=== PATIENT | male | born 1960 | race Caucasian/White ===

== ENCOUNTER → 2022-03-27 11:13 | Outpatient (CLI) | payer OTHER, SELFPAY ==
[2022-03-27 19:27] LABS: Add Manual Diff / Slide Review NO; Basophils Absolute Auto 0 /uL (0-100); Basophils Percent Auto 0.5 % (0-2); Eosinophils Absolute Auto 200 /uL (0-450); Eosinophils Percent Auto 2.2 % (2-4); Hematocrit 45.4 % (41-53); Hemoglobin 14.9 g/dL (13.5-17.5); Lymphocytes Absolute Auto 2000 /uL (1100-4500); Lymphocytes Percent Auto 24.5 % (25-40); Mean Corpuscular HGB Conc 32.9 % (30-36); Mean Corpuscular Hemoglobin 27.2 PG (26-34); Mean Corpuscular Volume 82.7 fL (80-100); Monocytes Absolute Auto 400 /uL (0-900); Monocytes Percent Auto 5.1 % (3-14); Neutrophils Absolute Auto 5400 /uL (1500-7000); Neutrophils Percent Auto 67.7 % (50-75); Platelet Count 268 X10^3/uL (150-400); Red Blood Cell Count 5.49 X10^6/uL (4.5-5.9); Red Cell Distribution Width 13.6 % (11.6-14.8)
[2022-03-27 19:59] LABS: Alanine Aminotransferase 74 IU/L (<50); Albumin 4.6 g/dL (3.5-5.0); Albumin Globulin Ratio 1.4 (1.0-2.8); Alkaline Phosphatase 72 U/L (38-126); Aspartate Aminotransferase 45 IU/L (17-59); BUN Creatinine Ratio 20.8 (6-22); Bilirubin Total 0.6 mg/dL (0.2-1.3); Blood Urea Nitrogen 16 mg/dL (9-20); Calcium 9.3 mg/dL (8.4-10.2); Carbon Dioxide 30 mmol/L (22-32); Chloride 101 mmol/L (98-107); Cholesterol 186 mg/dL (140-199); Estimated Glomerular Filt Rate > 60 mL/min (>60); Globulin 3.4 g/dL (1.7-4.1); Glucose 97 mg/dL (80-110); HDL Cholesterol 53 mg/dL (40-60); HEMOLYSIS < 15 (0-50); LDL Cholesterol Calculated 123 mg/dL (<100); Potassium 4.8 mmol/L (3.4-5.1); Sodium 140 mmol/L (137-145); Triglycerides 51 mg/dL (35-150)
[2022-03-27 20:04] LABS: TSH w/ Reflex to FT4 0.86 uIU/mL (0.47-4.68)
[2022-03-27 20:29] LABS: Prostate Specific Antigen Scrn 0.481 ng/mL (0.1-4.0)
== END ==
PROVIDERS: PCP Physician Assistant; Visit Provider Physician Assistant
DX: F41.0 Panic disorder [episodic paroxysmal anxiety] (principal); I10 Essential (primary) hypertension; Z13.6 Encounter for screening for cardiovascular disorders; Z63.0 Problems in relationship with spouse or partner; Z12.5 Encounter for screening for malignant neoplasm of prostate
CPT/HCPCS: 80053; 80061; 84443; 85025; G0103

== ENCOUNTER → 2023-05-03 10:14 | Outpatient (CLI) | payer OTHER, SELFPAY ==
[2023-05-03 20:08] LABS: Add Manual Diff / Slide Review NO; Basophils Absolute Auto 0 /uL (0-100); Basophils Percent Auto 0.6 % (0-2); Eosinophils Absolute Auto 200 /uL (0-450); Eosinophils Percent Auto 2.4 % (2-4); Hematocrit 45.4 % (41-53); Hemoglobin 15.1 g/dL (13.5-17.5); Lymphocytes Absolute Auto 1800 /uL (1100-4500); Lymphocytes Percent Auto 22.3 % (25-40); Mean Corpuscular HGB Conc 33.3 % (30-36); Mean Corpuscular Hemoglobin 26.7 PG (26-34); Mean Corpuscular Volume 80.4 fL (80-100); Monocytes Absolute Auto 600 /uL (0-900); Monocytes Percent Auto 7.4 % (3-14); Neutrophils Absolute Auto 5300 /uL (1500-7000); Neutrophils Percent Auto 67.3 % (50-75); Platelet Count 279 X10^3/uL (150-400); Red Blood Cell Count 5.65 X10^6/uL (4.5-5.9); Red Cell Distribution Width 14.3 % (11.6-14.8); White Blood Cell Count 7.9 X10^3/uL (4.5-11.0)
[2023-05-03 20:23] LABS: Alanine Aminotransferase 54 IU/L (<50); Albumin 4.4 g/dL (3.5-5.0); Albumin Globulin Ratio 1.2 (1.0-2.8); Alkaline Phosphatase 77 U/L (38-126); BUN Creatinine Ratio 18.2 (6-22); Bilirubin Total 1.2 mg/dL (0.2-1.3); Blood Urea Nitrogen 14 mg/dL (9-20); Calcium 9.7 mg/dL (8.4-10.2); Carbon Dioxide 30 mmol/L (22-32); Chloride 96 mmol/L (98-107); Cholesterol 168 mg/dL (140-199); Estimated Glomerular Filt Rate > 60 mL/min (>60); Globulin 3.7 g/dL (1.7-4.1); Glucose 149 mg/dL (80-110); HDL Cholesterol 53 mg/dL (40-60); HEMOLYSIS < 15 (0-50); LDL Cholesterol Calculated 98 mg/dL (<100); Potassium 4.7 mmol/L (3.4-5.1); Sodium 136 mmol/L (137-145); Total Protein 8.1 g/dL (6.3-8.2); Triglycerides 84 mg/dL (35-150)
[2023-05-03 20:30] LABS: TSH w/ Reflex to FT4 0.82 uIU/mL (0.47-4.68)
[2023-05-04 15:33] LABS: Aspartate Aminotransferase 38 IU/L (17-59)
== END ==
PROVIDERS: PCP Physician Assistant Medical; Visit Provider Physician Assistant Medical
DX: Z13.0 Encounter for screening for diseases of the blood and blood-forming organs and certain disorders involving the immune mechanism (principal); Z13.6 Encounter for screening for cardiovascular disorders; F32.9 Major depressive disorder, single episode, unspecified; F41.0 Panic disorder [episodic paroxysmal anxiety]; I10 Essential (primary) hypertension; R74.01 Elevation of levels of liver transaminase levels; Z63.0 Problems in relationship with spouse or partner; Z72.0 Tobacco use
CPT/HCPCS: 80053; 80061; 84443; 85025

== ENCOUNTER → 2023-05-10 11:54 | Outpatient (CLI) | payer OTHER, SELFPAY ==
[2023-05-10 19:39] LABS: Uric Acid 8.8 mg/dL (3.5-8.5)
== END ==
PROVIDERS: PCP Physician Assistant Medical; Visit Provider Physician Assistant Medical
DX: R73.9 Hyperglycemia, unspecified (principal); I10 Essential (primary) hypertension; M10.9 Gout, unspecified
CPT/HCPCS: 84550

== ENCOUNTER → 2023-06-13 12:21 | Outpatient (CLI) | payer OTHER, SELFPAY ==
[2023-06-13 19:49] LABS: Add Manual Diff / Slide Review NO; Basophils Absolute Auto 0 /uL (0-100); Basophils Percent Auto 0.3 % (0-2); Eosinophils Absolute Auto 200 /uL (0-450); Eosinophils Percent Auto 1.9 % (2-4); Hematocrit 44.9 % (41-53); Hemoglobin 14.9 g/dL (13.5-17.5); Lymphocytes Absolute Auto 1100 /uL (1100-4500); Lymphocytes Percent Auto 12.9 % (25-40); Mean Corpuscular HGB Conc 33.2 % (30-36); Mean Corpuscular Hemoglobin 26.5 PG (26-34); Mean Corpuscular Volume 79.7 fL (80-100); Monocytes Absolute Auto 800 /uL (0-900); Monocytes Percent Auto 8.7 % (3-14); Neutrophils Absolute Auto 6600 /uL (1500-7000); Neutrophils Percent Auto 76.2 % (50-75); Platelet Count 234 X10^3/uL (150-400); Red Blood Cell Count 5.64 X10^6/uL (4.5-5.9); White Blood Cell Count 8.7 X10^3/uL (4.5-11.0)
== END ==
PROVIDERS: PCP Physician Assistant Medical; Visit Provider Physician Assistant Medical
DX: M25.421 Effusion, right elbow (principal)
CPT/HCPCS: 84550; 85025

== ENCOUNTER → 2023-06-14 11:00 | Outpatient (CLI) | payer OTHER, SELFPAY ==
[2023-06-14 20:24] LABS: Crystals Body Fluid - IN-HOUSE Monosodium Urate MSU
== END ==
PROVIDERS: PCP Physician Assistant Medical; Visit Provider Physician Assistant Medical
DX: M25.421 Effusion, right elbow (principal); M10.9 Gout, unspecified
CPT/HCPCS: 87070; 87075; 87205; 89060

== ENCOUNTER → 2023-10-15 12:02 | Outpatient (CLI) | payer OTHER, SELFPAY ==
[2023-10-15 19:39] LABS: Add Manual Diff / Slide Review NO; Basophils Absolute Auto 0 /uL (0-100); Basophils Percent Auto 0.3 % (0-2); Eosinophils Absolute Auto 100 /uL (0-450); Eosinophils Percent Auto 1.2 % (2-4); Hematocrit 41.5 % (41-53); Hemoglobin 13.8 g/dL (13.5-17.5); Lymphocytes Absolute Auto 1700 /uL (1100-4500); Lymphocytes Percent Auto 15.5 % (25-40); Mean Corpuscular HGB Conc 33.2 % (30-36); Mean Corpuscular Hemoglobin 27.4 PG (26-34); Mean Corpuscular Volume 82.7 fL (80-100); Monocytes Absolute Auto 1000 /uL (0-900); Monocytes Percent Auto 9.6 % (3-14); Neutrophils Absolute Auto 8000 /uL (1500-7000); Neutrophils Percent Auto 73.4 % (50-75); Platelet Count 298 X10^3/uL (150-400); Red Blood Cell Count 5.02 X10^6/uL (4.5-5.9); Red Cell Distribution Width 13.7 % (11.6-14.8)
[2023-10-15 19:47] LABS: Alanine Aminotransferase 30 IU/L (<50); Albumin 4.3 g/dL (3.5-5.0); Albumin Globulin Ratio 1.2 (1.0-2.8); Alkaline Phosphatase 81 U/L (38-126); Aspartate Aminotransferase 25 IU/L (17-59); BUN Creatinine Ratio 18.3 (6-22); Bilirubin Total 1.2 mg/dL (0.2-1.3); Blood Urea Nitrogen 11 mg/dL (9-20); Calcium 9.4 mg/dL (8.4-10.2); Carbon Dioxide 23 mmol/L (22-32); Chloride 107 mmol/L (98-107); Estimated Glomerular Filt Rate > 60 mL/min (>60); Globulin 3.5 g/dL (1.7-4.1); Glucose 102 mg/dL (80-110); HEMOLYSIS 19 (0-50); Potassium 4.3 mmol/L (3.4-5.1); Sodium 138 mmol/L (137-145); Total Protein 7.8 g/dL (6.3-8.2); Uric Acid 4.5 mg/dL (3.5-8.5)
[2023-10-15 20:04] LABS: Erythrocyte Sedimentation Rate 11 MM/HR (0-15)
[2023-10-18 17:36] LABS: ANA Screen, IFA Negative (.)
== END ==
PROVIDERS: PCP Physician Assistant Medical; Visit Provider Physician Assistant
DX: R73.9 Hyperglycemia, unspecified (principal); M10.9 Gout, unspecified; M25.50 Pain in unspecified joint; R74.01 Elevation of levels of liver transaminase levels
CPT/HCPCS: 80053; 84550; 85025; 85651; 86038

== ENCOUNTER 2024-07-28 13:35 | Emergency (ER) | payer OTHER, SELFPAY ==
[2024-07-28] VITALS (21 sets, daily range): BP systolic 158–201; BP diastolic 88–106; PULSE 62–71; RESP 13–29; TEMP 36.6; O2SAT 95–99; BMI 32.3
--- NOTE | 2024-07-28 13:44 | DI.RAD.S_ITS ---
PROCEDURE: XR CHEST 1V INDICATIONS: chest pain TECHNIQUE: One view of the chest was acquired. COMPARISON: None. FINDINGS: Surgical changes and devices: None. Lungs and pleura: Lungs are clear. No pleural effusions or pneumothorax. Mediastinum: Mediastinal contours appear normal. Heart size is normal. Bones and chest wall: No suspicious bony lesions. Overlying soft tissues appear unremarkable. IMPRESSION: No acute cardiopulmonary abnormality is seen. Dictated by: Kartik Gómez M.D. on 07/28/2024 at 14:20 Approved by: Kartik Gómez M.D. on 07/28/2024 at 14:21
--- NOTE | 2024-07-28 13:58 | EKG_ITS ---
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
[2024-07-28 14:04] LABS: Add Manual Diff / Slide Review NO; Basophils Absolute Auto 0 /uL (0-100); Basophils Percent Auto 0.5 % (0-2); Eosinophils Absolute Auto 300 /uL (0-450); Eosinophils Percent Auto 4.1 % (2-4); Hematocrit 43.4 % (41-53); Hemoglobin 14.4 g/dL (13.5-17.5); Lymphocytes Absolute Auto 1800 /uL (1100-4500); Lymphocytes Percent Auto 21.9 % (25-40); Mean Corpuscular HGB Conc 33.2 % (30-36); Mean Corpuscular Hemoglobin 26.7 PG (26-34); Mean Corpuscular Volume 80.6 fL (80-100); Monocytes Absolute Auto 400 /uL (0-900); Neutrophils Absolute Auto 5700 /uL (1500-7000); Neutrophils Percent Auto 68.5 % (50-75); Platelet Count 329 X10^3/uL (150-400); Red Blood Cell Count 5.39 X10^6/uL (4.5-5.9); Red Cell Distribution Width 13.1 % (11.6-14.8); White Blood Cell Count 8.3 X10^3/uL (4.5-11.0)
[2024-07-28 14:11] LABS: Prothrombin Time 11.5 SECONDS (9.4-12.5)
[2024-07-28 14:13] LABS: PTT Partial Thromboplastin Tim 36 SECONDS (25.1-36.5)
[2024-07-28 14:15] LABS: Alanine Aminotransferase 30 IU/L (<50); Albumin 4.5 g/dL (3.5-5.0); Albumin Globulin Ratio 1.3 (1.0-2.8); Alkaline Phosphatase 81 U/L (38-126); Aspartate Aminotransferase 30 IU/L (17-59); BUN Creatinine Ratio 16.4 (6-22); Bilirubin Total 0.5 mg/dL (0.2-1.3); Blood Urea Nitrogen 19 mg/dL (9-20); Calcium 9.2 mg/dL (8.4-10.2); Carbon Dioxide 27 mmol/L (22-32); Chloride 101 mmol/L (98-107); Creatine Kinase 64 U/L (55-170); Estimated Glomerular Filt Rate > 60 mL/min (>60); Globulin 3.6 g/dL (1.7-4.1); Glucose 155 mg/dL (80-110); HEMOLYSIS < 15 (0-50); Lipase 112 U/L (23-300); Magnesium 1.9 mg/dL (1.6-2.3); Potassium 4.1 mmol/L (3.4-5.1); Sodium 138 mmol/L (137-145); Total Protein 8.1 g/dL (6.3-8.2)
[2024-07-28 14:27] LABS: NT-proBNP (BNP-Adult 18+) 112 pg/mL (<125); Troponin I < 0.012 ng/mL (0.01-0.034)
--- NOTE | 2024-07-28 17:04 | ED.CHESTPAIN ---
HPI - Chest Pain General Chief Complaint: Chest Pain Stated Complaint: fall, chest px, sob x 2days Time Seen by Provider: 07/28/24 16:27 Source: patient, RN notes reviewed and old records reviewed Mode of arrival: Ambulatory Limitations: no limitations Limitations: no limitations Related Data Previous Rx's Medication Instructions Recorded lisinopril 30 mg tablet 30 mg PO DAILY #90 tabs 06/13/23 allopurinol 300 mg tablet See Rx Instructions PO DAILY #90 06/22/23 tabs hydrocodone 5 mg-acetaminophen 325 1 tab PO BEDTIME PRN pain at 10/15/23 mg tablet nighttime #10 tabs colchicine 0.6 mg capsule See Rx Instructions PO DAILY #90 12/17/23 caps amlodipine 5 mg tablet 5 mg PO DAILY #90 tabs 04/17/24 bupropion HCl 150 mg 24 hr tablet, 300 mg (2 x 150 mg) PO QAM #180 05/06/24 extended release tabs Allergies Allergy/AdvReac Type Severity Reaction Status Date / Time No Known Drug Allergies Allergy Verified 10/15/23 11:28 Review of Systems Review of Systems ROS Unobtainable: All systems reviewed & are unremarkable except as noted in HPI and below Patient History Surgical History Anesthesia History of knee surgery Family History Mother Cancer Social History Smoking Status: Never smoker Smoking Status: Never smoker Exam Initial Vital Signs Initial Vital Signs: Vital Signs Temperature 97.9 F 07/28/24 13:39 Pulse Rate 69 07/28/24 13:39 Respiratory Rate 18 07/28/24 13:39 Blood Pressure 201/94 H 07/28/24 13:39 Pulse Oximetry 99 07/28/24 13:39 Oxygen Delivery Method Room Air 07/28/24 13:39 Course Orders Ordered: ED Orders 07/28/24 13:44 XR chest 1V Stat EKG-12 Lead Stat 07/28/24 13:50 Complete Blood Count AUTO DIFF Stat Comprehensive Metabolic Panel Stat Lipase Stat Magnesium Stat NT-proBNP (BNP-Adult 18+) Stat PTT Partial Thromboplastin Sean Stat Prothrombin Time INR Stat Troponin & CK Cardiac Panel Stat Discontinued Medications Aspirin (Aspirin 81 Mg Chew Tab) 324 mg PO NOW ONE Stop: 07/28/24 13:45 Last Admin: 07/28/24 15:04 Dose: Not Given Documented By: ROBERTO Vital Signs Vital signs: Vital Signs - 8 hr 07/28/24 13:39 07/28/24 14:02 07/28/24 14:03 Temperature 97.9 F Pulse Rate 69 68 Respiratory Rate 18 29 H Blood Pressure 201/94 H 182/100 H Pulse Oximetry 99 98 Oxygen Delivery Method Room Air 07/28/24 14:03 07/28/24 14:30 07/28/24 14:31 Temperature Pulse Rate 71 69 70 Respiratory Rate 18 22 21 Blood Pressure Pulse Oximetry 97 98 98 Oxygen Delivery Method 07/28/24 14:31 07/28/24 15:00 07/28/24 15:01 Temperature Pulse Rate 65 Respiratory Rate 18 Blood Pressure 173/106 H 176/91 H Pulse Oximetry 96 Oxygen Delivery Method 07/28/24 15:01 07/28/24 15:30 07/28/24 15:30 Temperature Pulse Rate 66 63 Respiratory Rate 18 20 Blood Pressure 174/88 H Pulse Oximetry 95 96 Oxygen Delivery Method Room Air 07/28/24 16:00 07/28/24 16:01 07/28/24 16:01 Temperature Pulse Rate 65 65 Respiratory Rate 20 18 Blood Pressure 169/102 H Pulse Oximetry 97 97 Oxygen Delivery Method 07/28/24 16:29 07/28/24 16:29 07/28/24 16:30 Temperature Pulse Rate 66 62 Respiratory Rate 19 20 Blood Pressure 183/89 H Pulse Oximetry 97 96 Oxygen Delivery Method 07/28/24 16:31 07/28/24 16:31 07/28/24 17:00 Temperature Pulse Rate 62 65 Respiratory Rate 17 13 Blood Pressure 182/93 H Pulse Oximetry 97 97 Oxygen Delivery Method 07/28/24 17:01 07/28/24 17:01 Temperature Pulse Rate 65 Respiratory Rate 18 Blood Pressure 158/98 H Pulse Oximetry 97 Oxygen Delivery Method MDM - Chest Pain Lab Data 07/28/24 13:50 07/28/24 13:50 Labs: Lab Results 07/28/24 Range/Units 13:50 WBC 8.3 (4.5-11.0) X10^3/uL RBC 5.39 (4.5-5.9) X10^6/uL Hgb 14.4 (13.5-17.5) g/dL Hct 43.4 (41-53) % MCV 80.6 (80-100) fL MCH 26.7 (26-34) PG MCHC 33.2 (30-36) % RDW 13.1 (11.6-14.8) % Plt Count 329 (150-400) X10^3/uL Neut % (Auto) 68.5 (50-75) % Lymph % (Auto) 21.9 L (25-40) % [place] % (Auto) 5.0 (3-14) % Eos % (Auto) 4.1 H (2-4) % Baso % (Auto) 0.5 (0-2) % Neut # (Auto) 5700 (6046-6745) /uL Lymph # (Auto) 1800 (1470-0292) /uL [place] # (Auto) 400 (0-900) /uL Eos # (Auto) 300 (0-450) /uL Baso # (Auto) 0 (0-100) /uL PT 11.5 (9.4-12.5) SECONDS INR 1.0 (0.9-1.3) APTT 36 (25.1-36.5) SECONDS Sodium 138 (137-145) mmol/L Potassium 4.1 (3.4-5.1) mmol/L Chloride 101 (98-107) mmol/L Carbon Dioxide 27 (22-32) mmol/L BUN 19 (9-20) mg/dL Creatinine 1.16 (0.66-1.25) mg/dL Estimated GFR > 60 (>60) mL/min BUN/Creatinine Ratio 16.4 (6-22) Glucose 155 H (80-110) mg/dL Calcium 9.2 (8.4-10.2) mg/dL Magnesium 1.9 (1.6-2.3) mg/dL Total Bilirubin 0.5 (0.2-1.3) mg/dL AST 30 (17-59) IU/L ALT 30 (<50) IU/L Alkaline Phosphatase 81 (38-126) U/L Total Creatine Kinase 64 (55-170) U/L Troponin I < 0.012 (0.01-0.034) ng/mL NT-Pro-B Natriuret Pep 112 (<125) pg/mL Total Protein 8.1 (6.3-8.2) g/dL Albumin 4.5 (3.5-5.0) g/dL Globulin 3.6 (1.7-4.1) g/dL Albumin/Globulin Ratio 1.3 (1.0-2.8) Lipase 112 (23-300) U/L ECG Data Attestation: I personally reviewed and interpreted this ECG as follows: Interpretation: Sinus rhythm rate of 68 GA 204 QRS 88 QTC of 442, no acute ST elevation depression noted. MDM Narrative Medical decision making narrative: EKG shows sinus rhythm Labs show normal white count hemoglobin and platelets. Coags are negative electrolytes are appropriate creatinine is 1.16 BUN 19 glucose is 155 days are negative, troponins less than 0.012, BNP is 112. Lipase is 112. Discharge Plan Departure Prescriptions: No Action allopurinol 300 mg tablet See Rx Instructions PO DAILY Qty: 90 3RF Hold Instructions: hold Rx Instructions: Take one daily after finishing the 100 mg prescription colchicine 0.6 mg capsule See Rx Instructions PO DAILY Qty: 90 0RF Rx Instructions: Take one twice daily with onset of attack, then take one daily for 2 weeks amlodipine 5 mg tablet 5 mg PO DAILY Qty: 90 0RF bupropion HCl 150 mg tablet extended release 24 hr 300 mg PO QAM Qty: 180 1RF hydrocodone-acetaminophen 5-325 mg tablet 1 tab PO BEDTIME PRN (Reason: pain at nighttime) Qty: 10 0RF Rx Instructions: 1-2 prn pain hs lisinopril 30 mg tablet 30 mg PO DAILY Qty: 90 0RF triamcinolone acetonide [Kenalog] 40 mg/mL suspension 80 mg intrabursal ONCE Qty: 2 0RF triamcinolone acetonide [Kenalog] 40 mg/mL suspension 80 mg intrabursal ONCE Qty: 2 0RF Referrals: Tabby Huerta PA-C [Primary Care Provider] -
--- NOTE | 2024-07-28 18:25 | ED_ITS ---
HPI - Chest Pain General Chief Complaint: Chest Pain Stated Complaint: fall, chest px, sob x 2days Time Seen by Provider: 07/28/24 16:27 Source: patient Mode of arrival: Ambulatory Limitations: no limitations History of Present Illness HPI narrative: 63-year-old male with a past medical history of hypertension, gout, comes into the ED from home after mechanical trip and fall few days ago. Patient states he was stepping up onto a truck slipped and fell about 4 ft hitting his mid chest on the tire, states that since then he is felt short of breath, he denies head strike denies blood thinners, denies LOC at that time. He denies any other injuries/complaints at this time. Related Data Previous Rx's Medication Instructions Recorded lisinopril 30 mg tablet 30 mg PO DAILY #90 tabs 06/13/23 allopurinol 300 mg tablet See Rx Instructions PO DAILY #90 06/22/23 tabs hydrocodone 5 mg-acetaminophen 325 1 tab PO BEDTIME PRN pain at 10/15/23 mg tablet nighttime #10 tabs colchicine 0.6 mg capsule See Rx Instructions PO DAILY #90 12/17/23 caps amlodipine 5 mg tablet 5 mg PO DAILY #90 tabs 04/17/24 bupropion HCl 150 mg 24 hr tablet, 300 mg (2 x 150 mg) PO QAM #180 05/06/24 extended release tabs lidocaine 4 % topical patch 1 patch topical DAILY PRN pain 1 07/28/24 week #6 ea methocarbamol 500 mg tablet 500 mg PO Q8H PRN pain 1 week #21 07/28/24 tabs Allergies Allergy/AdvReac Type Severity Reaction Status Date / Time No Known Drug Allergies Allergy Verified 10/15/23 11:28 Review of Systems Review of Systems Narrative: General: Positive mechanical trip and fall, Denies fever, chills, weight loss HEENT: Denies headache, eye drainage, eye irritation, head trauma, sore throat, voice change Cardiovascular: Positive chest pain, denies palpitations, tachycardia Respiratory: Positive shortness of breath, denies cough, wheeze, stridor GI/: Denies any abdominal pain, nausea, vomiting, diarrhea, bright red blood per rectum, melanotic stools, urinary frequency, urinary retention, dysuria, hematuria MSK: Denies any joint pain, muscle pains, swelling Skin: Denies any rashes, lesions, discoloration Neuro: Denies any headache, lightheadedness, dizziness, fainting, weakness Psych: Denies SI/HI Patient History Surgical History Anesthesia History of knee surgery Family History Mother Cancer Smoking Status: Never smoker Exam Narrative Exam Narrative: General: Cooperative, well-developed, not in acute distress HEENT: Normocephalic, atraumatic, PERRLA, normal sclera, eyelids normal Neck: Active full range of motion, atraumatic Chest: Minor tenderness to palpation over the anterior chest but no overlying erythema ecchymosis palpable step-off, Normal to inspection, negative crepitus, no overlying erythema ecchymosis Respiratory: Normal respiratory effort, not in acute respiratory distress, clear to auscultation bilaterally negative cough, wheeze, tachypnea, rhonchi, rales Cardiology: Regular rate rhythm negative gallop, murmur, rubs GI/: No tenderness to palpation, soft, non rigid, normal to inspection, exam deferred MSK: Full active range of motion in all 4 extremities, atraumatic, no tenderness to palpation of any bony prominences Skin: No rashes or lesions noted Neuro: Alert awake oriented x3, moves all 4 extremities spontaneously, cranial nerves intact, able to answer all questions appropriately follows commands appropriately Psych: Cooperative, negative suicidal or homicidal ideations Initial Vital Signs Initial Vital Signs: Vital Signs Temperature 97.9 F 07/28/24 13:39 Pulse Rate 69 07/28/24 13:39 Respiratory Rate 18 07/28/24 13:39 Blood Pressure 201/94 H 07/28/24 13:39 Pulse Oximetry 99 07/28/24 13:39 Oxygen Delivery Method Room Air 07/28/24 13:39 Course Orders Ordered: ED Orders 07/28/24 13:44 XR chest 1V Stat EKG-12 Lead Stat 07/28/24 13:50 Complete Blood Count AUTO DIFF Stat Comprehensive Metabolic Panel Stat Lipase Stat Magnesium Stat NT-proBNP (BNP-Adult 18+) Stat PTT Partial Thromboplastin Sean Stat Prothrombin Time INR Stat Troponin & CK Cardiac Panel Stat 07/28/24 18:41 CT chest wo con Stat Discontinued Medications Aspirin (Aspirin 81 Mg Chew Tab) 324 mg PO NOW ONE Stop: 07/28/24 13:45 Last Admin: 07/28/24 15:04 Dose: Not Given Documented By: ROBERTO Vital Signs Vital signs: Vital Signs - 8 hr 07/28/24 13:39 07/28/24 14:02 07/28/24 14:03 Temperature 97.9 F Pulse Rate 69 68 Respiratory Rate 18 29 H Blood Pressure 201/94 H 182/100 H Pulse Oximetry 99 98 Oxygen Delivery Method Room Air 07/28/24 14:03 07/28/24 14:30 07/28/24 14:31 Temperature Pulse Rate 71 69 70 Respiratory Rate 18 22 21 Blood Pressure Pulse Oximetry 97 98 98 Oxygen Delivery Method 07/28/24 14:31 07/28/24 15:00 07/28/24 15:01 Temperature Pulse Rate 65 Respiratory Rate 18 Blood Pressure 173/106 H 176/91 H Pulse Oximetry 96 Oxygen Delivery Method 07/28/24 15:01 07/28/24 15:30 07/28/24 15:30 Temperature Pulse Rate 66 63 Respiratory Rate 18 20 Blood Pressure 174/88 H Pulse Oximetry 95 96 Oxygen Delivery Method Room Air 07/28/24 16:00 07/28/24 16:01 07/28/24 16:01 Temperature Pulse Rate 65 65 Respiratory Rate 20 18 Blood Pressure 169/102 H Pulse Oximetry 97 97 Oxygen Delivery Method 07/28/24 16:29 07/28/24 16:29 07/28/24 16:30 Temperature Pulse Rate 66 62 Respiratory Rate 19 20 Blood Pressure 183/89 H Pulse Oximetry 97 96 Oxygen Delivery Method 07/28/24 16:31 07/28/24 16:31 07/28/24 17:00 Temperature Pulse Rate 62 65 Respiratory Rate 17 13 Blood Pressure 182/93 H Pulse Oximetry 97 97 Oxygen Delivery Method 07/28/24 17:01 07/28/24 17:01 Temperature Pulse Rate 65 Respiratory Rate 18 Blood Pressure 158/98 H Pulse Oximetry 97 Oxygen Delivery Method MDM - Chest Pain Lab Data 07/28/24 13:50 07/28/24 13:50 Labs: Lab Results 07/28/24 Range/Units 13:50 WBC 8.3 (4.5-11.0) X10^3/uL RBC 5.39 (4.5-5.9) X10^6/uL Hgb 14.4 (13.5-17.5) g/dL Hct 43.4 (41-53) % MCV 80.6 (80-100) fL MCH 26.7 (26-34) PG MCHC 33.2 (30-36) % RDW 13.1 (11.6-14.8) % Plt Count 329 (150-400) X10^3/uL Neut % (Auto) 68.5 (50-75) % Lymph % (Auto) 21.9 L (25-40) % [place] % (Auto) 5.0 (3-14) % Eos % (Auto) 4.1 H (2-4) % Baso % (Auto) 0.5 (0-2) % Neut # (Auto) 5700 (8917-2735) /uL Lymph # (Auto) 1800 (1820-9175) /uL [place] # (Auto) 400 (0-900) /uL Eos # (Auto) 300 (0-450) /uL Baso # (Auto) 0 (0-100) /uL PT 11.5 (9.4-12.5) SECONDS INR 1.0 (0.9-1.3) APTT 36 (25.1-36.5) SECONDS Sodium 138 (137-145) mmol/L Potassium 4.1 (3.4-5.1) mmol/L Chloride 101 (98-107) mmol/L Carbon Dioxide 27 (22-32) mmol/L BUN 19 (9-20) mg/dL Creatinine 1.16 (0.66-1.25) mg/dL Estimated GFR > 60 (>60) mL/min BUN/Creatinine Ratio 16.4 (6-22) Glucose 155 H (80-110) mg/dL Calcium 9.2 (8.4-10.2) mg/dL Magnesium 1.9 (1.6-2.3) mg/dL Total Bilirubin 0.5 (0.2-1.3) mg/dL AST 30 (17-59) IU/L ALT 30 (<50) IU/L Alkaline Phosphatase 81 (38-126) U/L Total Creatine Kinase 64 (55-170) U/L Troponin I < 0.012 (0.01-0.034) ng/mL NT-Pro-B Natriuret Pep 112 (<125) pg/mL Total Protein 8.1 (6.3-8.2) g/dL Albumin 4.5 (3.5-5.0) g/dL Globulin 3.6 (1.7-4.1) g/dL Albumin/Globulin Ratio 1.3 (1.0-2.8) Lipase 112 (23-300) U/L Imaging Data Chest x-ray: Radiologist's Impression: [place] [address] XRay Report Signed Patient: Tho Lynne MR#: [id number] : 1960 Acct:[id number] Age/Sex: 63 / M Date of Service: 07/28/24 Loc: ED Accession Number: [id number] Procedure: XR chest 1V Ordering Provider: Elvira Reina D.O. PROCEDURE: XR CHEST 1V INDICATIONS: chest pain TECHNIQUE: One view of the chest was acquired. COMPARISON: None. FINDINGS: Surgical changes and devices: None. Lungs and pleura: Lungs are clear. No pleural effusions or pneumothorax. Mediastinum: Mediastinal contours appear normal. Heart size is normal. Bones and chest wall: No suspicious bony lesions. Overlying soft tissues appear unremarkable. IMPRESSION: No acute cardiopulmonary abnormality is seen. CT scan - chest: Radiologist's Impression: [place] [address] CT Scan Report Signed Patient: Tho Lynne MR#: [id number] : 1960 Acct:[id number] Age/Sex: 63 / M Date of Service: 07/28/24 Loc: ED Accession Number: [id number] Procedure: CT chest wo con Ordering Provider: Zach Shoemaker D.O. PROCEDURE: CT CHEST WO CON INDICATIONS: trauma, fell on chest TECHNIQUE: Noncontrast 5 mm thick sections acquired from the pulmonary apices to the posterior costophrenic angles. 1 mm lung window, 5 mm thick coronal and sagittal and 7 mm axial MIP reformats were then acquired. For radiation dose reduction, the following was used: automated exposure control, adjustment of mA and/or kV according to patient size. [facility]. FINDINGS: Image quality: Diagnostic. Lower Neck: No enlarged lymph nodes. Thyroid: No thyroid nodules which require sonographic follow up, per consensus guidelines. Axillae: No enlarged lymph nodes. Chest Wall: Unremarkable. Bones: No aggressive appearing bony lesions. No acute displaced rib fractures. No acute thoracic spine vertebral body compression fracture or spondylolisthesis. No sternal fracture. Lungs and Pleura: No pneumothorax or pleural effusions. Linear scarring/atelectasis at bilateral lung bases are seen. No consolidation or suspicious nodules. Heart: Heart size is normal. No pericardial effusion. Thoracic Vessels: The aorta and pulmonary arteries demonstrate normal size. Mediastinum and [place]: No enlarged lymph nodes. Esophagus: No wall thickening. No hiatal hernia. Upper Abdomen: Visualized upper abdomen solid organs and bowel loops appear normal. Simple appearing left renal cyst is seen. Prominence of right renal collecting system incompletely evaluated on this study. Nonobstructing stones are noted in right kidney. IMPRESSION: 1. No evidence of acute trauma is seen in the chest. No displaced rib fractures. 2. Bibasilar scarring/atelectasis. 3. Incidentally noted of prominent right renal collecting system and nonobstructing right renal calculi. This is incompletely evaluated on this CT of chest study. ECG Data Interpretation: EKG interpreted ED physician sinus 68 beats per minute QTC [address] changes no STEMI MDM Narrative Medical decision making narrative: 63-year-old male with a past medical history of hypertension, gout, presents for chest pain shortness breath after mechanical trip and fall few days ago after he was going up a truck and landed on his chest. No head strike no LOC not on any blood thinners. EKG nonischemic in nature here in the emergency department. Lab work unremarkable, troponin negative. Ct scan without any traumatic findings, physical exam more consistent with chest wall contusion given history of trauma, patient will be sent home with symptomatic relief, lidocaine patches, Robaxin, instructed follow up with primary care in outpatient setting patient was given strict return precautions he verbalized understanding of this and agrees to being discharged home with outpatient follow up. Heart score 2 Discharge Plan Departure Patient Disposition: Home Clinical Impression: Contusion of anterior chest wall Instructions: DI for Sternum Contusion Activity Restrictions/Additional Instructions: Please follow up with your primary care doctor Please read the discharge instructions sheet carefully and bring all papers to all doctor follow-up visits, as it may contain information that your doctor may want to see. Disease processes change and evolve, if your symptoms worsen or if you develop any new symptoms that are concerning to you please return for evaluation. Your evaluation today does not show any evidence of any life- threatening/serious illnesses requiring admission to the hospital or surgery. Please follow-up with your doctor for re-evaluation in approximately 1 day. Seek immediate medical attention for any worrisome symptoms. *If you do not have a primary care provider please contact the [facility] Resource line at [phone]. They will ask some questions about your medical history and help get you set up with a doctor in the community. Prescriptions: New methocarbamol 500 mg tablet 500 mg PO Q8H PRN (Reason: pain) 7 Days Qty: 21 0RF lidocaine 4 % adhesive patch,medicated 1 patch topical DAILY PRN (Reason: pain) 7 Days Qty: 6 0RF No Action allopurinol 300 mg tablet See Rx Instructions PO DAILY Qty: 90 3RF Hold Instructions: hold Rx Instructions: Take one daily after finishing the 100 mg prescription colchicine 0.6 mg capsule See Rx Instructions PO DAILY Qty: 90 0RF Rx Instructions: Take one twice daily with onset of attack, then take one daily for 2 weeks amlodipine 5 mg tablet 5 mg PO DAILY Qty: 90 0RF bupropion HCl 150 mg tablet extended release 24 hr 300 mg PO QAM Qty: 180 1RF hydrocodone-acetaminophen 5-325 mg tablet 1 tab PO BEDTIME PRN (Reason: pain at nighttime) Qty: 10 0RF Rx Instructions: 1-2 prn pain hs lisinopril 30 mg tablet 30 mg PO DAILY Qty: 90 0RF triamcinolone acetonide [Kenalog] 40 mg/mL suspension 80 mg intrabursal ONCE Qty: 2 0RF triamcinolone acetonide [Kenalog] 40 mg/mL suspension 80 mg intrabursal ONCE Qty: 2 0RF Referrals: Tabby Huerta PA-C [Primary Care Provider] - Stand Alone Forms: Patient Portal/API/Survey
--- NOTE | 2024-07-28 18:41 | DI.CT.S_ITS ---
PROCEDURE: CT CHEST WO CON INDICATIONS: trauma, fell on chest TECHNIQUE: Noncontrast 5 mm thick sections acquired from the pulmonary apices to the posterior costophrenic angles. 1 mm lung window, 5 mm thick coronal and sagittal and 7 mm axial MIP reformats were then acquired. For radiation dose reduction, the following was used: automated exposure control, adjustment of mA and/or kV according to patient size. COMPARISON: [facility], CR, XR CHEST 1V, 07/28/2024, 13:53. FINDINGS: Image quality: Diagnostic. Lower Neck: No enlarged lymph nodes. Thyroid: No thyroid nodules which require sonographic follow up, per consensus guidelines. Axillae: No enlarged lymph nodes. Chest Wall: Unremarkable. Bones: No aggressive appearing bony lesions. No acute displaced rib fractures. No acute thoracic spine vertebral body compression fracture or spondylolisthesis. No sternal fracture. Lungs and Pleura: No pneumothorax or pleural effusions. Linear scarring/atelectasis at bilateral lung bases are seen. No consolidation or suspicious nodules. Heart: Heart size is normal. No pericardial effusion. Thoracic Vessels: The aorta and pulmonary arteries demonstrate normal size. Mediastinum and [place]: No enlarged lymph nodes. Esophagus: No wall thickening. No hiatal hernia. Upper Abdomen: Visualized upper abdomen solid organs and bowel loops appear normal. Simple appearing left renal cyst is seen. Prominence of right renal collecting system incompletely evaluated on this study. Nonobstructing stones are noted in right kidney. IMPRESSION: 1. No evidence of acute trauma is seen in the chest. No displaced rib fractures. 2. Bibasilar scarring/atelectasis. 3. Incidentally noted of prominent right renal collecting system and nonobstructing right renal calculi. This is incompletely evaluated on this CT of chest study. Dictated by: Orestes Celestin M.D. on 07/28/2024 at 19:01 Approved by: Orestes Celestin M.D. on 07/28/2024 at 19:06
== END 2024-07-28 19:30 | disposition home or self-care (01) ==
PROVIDERS: Emergency Medicine; Emergency Provider Student in an Organized Health Care Education/Training Program; PCP Physician Assistant Medical
DX: S20.219A Contusion of unspecified front wall of thorax, initial encounter (principal); R06.02 Shortness of breath; W01.0XXA Fall on same level from slipping, tripping and stumbling without subsequent striking against object, initial encounter
CPT/HCPCS: 36415; 71045; 71250; 80053; 82550; 83690; 83735; 83880; 84484; 85025; 85610; 85730; 93005; 99283; 99284

== ENCOUNTER → 2024-08-05 14:14 | Outpatient (CLI) | payer OTHER, SELFPAY | PROVIDERS: PCP Physician Assistant Medical; Visit Provider Physician Assistant | DX: R10.9 Unspecified abdominal pain (principal); Z87.442 Personal history of urinary calculi | CPT/HCPCS: 87086 ==

== ENCOUNTER → 2024-08-12 08:40 | Outpatient (CLI) | payer OTHER, SELFPAY ==
[2024-08-12 19:19] LABS: Bacteria Urine Occasional (0-1); Culture Indicated Urine Cult Not Indicated; RBC Urine 0-1/HPF (0-5/HPF); Squamous Epithelial Cell Urine 0-1 /HPF (0-5/HPF); Urine Volume 10mL (spun); WBC Urine 0-1/HPF (0-5/HPF)
== END ==
LOC: LAB 08:40
PROVIDERS: PCP Physician Assistant Medical; Visit Provider Physician Assistant Medical
DX: M10.9 Gout, unspecified (principal); R31.9 Hematuria, unspecified; R10.9 Unspecified abdominal pain
CPT/HCPCS: 81015

== ENCOUNTER → 2024-10-01 09:27 | Outpatient (CLI) | payer OTHER, SELFPAY ==
[2024-10-01 19:11] LABS: Add Manual Diff / Slide Review NO; Basophils Absolute Auto 0 /uL (0-100); Basophils Percent Auto 0.5 % (0-2); Eosinophils Absolute Auto 300 /uL (0-450); Eosinophils Percent Auto 4.3 % (2-4); Hematocrit 41.9 % (41-53); Hemoglobin 13.8 g/dL (13.5-17.5); Lymphocytes Absolute Auto 1600 /uL (1100-4500); Lymphocytes Percent Auto 24.4 % (25-40); Mean Corpuscular Volume 81.9 fL (80-100); Monocytes Absolute Auto 500 /uL (0-900); Monocytes Percent Auto 7.9 % (3-14); Neutrophils Absolute Auto 4000 /uL (1500-7000); Neutrophils Percent Auto 62.9 % (50-75); Platelet Count 282 X10^3/uL (150-400); Red Blood Cell Count 5.11 X10^6/uL (4.5-5.9); White Blood Cell Count 6.4 X10^3/uL (4.5-11.0)
[2024-10-01 19:37] LABS: Hemoglobin A1C% w Est Avg Glu 5.8 % (4.0-6.0)
[2024-10-01 19:41] LABS: Alanine Aminotransferase 69 IU/L (<50); Albumin 4.1 g/dL (3.5-5.0); Albumin Globulin Ratio 1.5 (1.0-2.8); Alkaline Phosphatase 79 U/L (38-126); Aspartate Aminotransferase 41 IU/L (17-59); Bilirubin Total 0.7 mg/dL (0.2-1.3); Blood Urea Nitrogen 13 mg/dL (9-20); Calcium 9.2 mg/dL (8.4-10.2); Carbon Dioxide 26 mmol/L (22-32); Chloride 102 mmol/L (98-107); Cholesterol 141 mg/dL (140-199); Estimated Glomerular Filt Rate > 60 mL/min (>60); Globulin 2.7 g/dL (1.7-4.1); Glucose 161 mg/dL (70-99); HDL Cholesterol 48 mg/dL (40-60); HEMOLYSIS < 15 (0-50); LDL Cholesterol Calculated 79 mg/dL (<100); Potassium 4.5 mmol/L (3.4-5.1); Sodium 137 mmol/L (137-145); Total Protein 6.8 g/dL (6.3-8.2); Triglycerides 69 mg/dL (35-150); Uric Acid 4.9 mg/dL (3.5-8.5)
[2024-10-01 20:12] LABS: TSH w/ Reflex to FT4 0.96 uIU/mL (0.47-4.68)
[2024-10-01 20:13] LABS: Prostate Specific Antigen Scrn 0.418 ng/mL (0.1-4.0)
== END ==
PROVIDERS: PCP Physician Assistant Medical; Visit Provider Physician Assistant Medical
DX: R31.9 Hematuria, unspecified (principal); M10.9 Gout, unspecified; R73.9 Hyperglycemia, unspecified; I10 Essential (primary) hypertension; R74.01 Elevation of levels of liver transaminase levels; Z12.11 Encounter for screening for malignant neoplasm of colon; Z12.5 Encounter for screening for malignant neoplasm of prostate
CPT/HCPCS: 80053; 80061; 83036; 84443; 84550; 85025; G0103

== ENCOUNTER → 2025-02-10 11:52 | Outpatient (CLI) | payer OTHER, SELFPAY ==
[2025-02-10 19:19] LABS: Alanine Aminotransferase 40 IU/L (<50); Albumin 4.6 g/dL (3.5-5.0); Albumin Globulin Ratio 1.4 (1.0-2.8); Alkaline Phosphatase 77 U/L (38-126); Blood Urea Nitrogen 12 mg/dL (9-20); Calcium 9.3 mg/dL (8.4-10.2); Carbon Dioxide 29 mmol/L (22-32); Chloride 100 mmol/L (98-107); Estimated Glomerular Filt Rate > 60 mL/min (>60); Globulin 3.3 g/dL (1.7-4.1); Glucose 99 mg/dL (70-99); HEMOLYSIS 26 (0-50); Potassium 4.6 mmol/L (3.4-5.1); Sodium 137 mmol/L (137-145); Total Protein 7.9 g/dL (6.3-8.2)
[2025-02-10 19:51] LABS: TSH w/ Reflex to FT4 1.07 uIU/mL (0.47-4.68)
== END ==
PROVIDERS: PCP Physician Assistant Medical; Visit Provider Physician Assistant Medical
DX: R74.01 Elevation of levels of liver transaminase levels (principal); R53.83 Other fatigue
CPT/HCPCS: 80053; 84443